=== PATIENT | female | born 1970 | race Caucasian/White ===

== ENCOUNTER 2016-04-26 08:52 | Observation (INO) | payer BC, OTHER ==
[2016-04-08 09:28] VITALS: BMI 24.0
--- NOTE | 2016-04-09 13:28 | PAT Medication Instructions ---
Service Date Apr 09, 2016. Current Home Medication List Albuterol Hfa (Ventolin Hfa), 2-4 PUFFS INH Q6H PRN for Shortness of Breath Control Pills ( Control Pills), 1 TAB PO DAILY Fexofenadine Hcl (Jane Allergy), 1 TAB PO QAM Fluticasone Propionate (Nasal) (Flonase Allergy Relief), 1 SPRAY NA DAILY Medication Instructions For Your Scheduled Surgery - Check with surgeon for instructions: Control Pills ( Control Pills), 1 TAB PO DAILY Excedrin Migraine - Hold the following medications the morning of surgery: Fexofenadine Hcl (Jane Allergy), 1 TAB PO QAM - Take the following medications the morning of surgery with a sip of water: Fluticasone Propionate (Nasal) (Flonase Allergy Relief), 1 SPRAY NA DAILY Albuterol Hfa (Ventolin Hfa), 2-4 PUFFS INH Q6H PRN for Shortness of Breath - Take the following medications as scheduled the night before surgery: Albuterol Hfa (Ventolin Hfa), 2-4 PUFFS INH Q6H PRN for Shortness of Breath If you have any questions please call us at [phone] (Jessica Worley PA-C ) or [phone] or [phone]
[2016-04-09 16:04] LABS: BUN/CREATININE RATIO 15.1 (10-20); CALCIUM 8.8 mg/dl (8.5-10.1); CREATININE 0.95 mg/dl (0.60-1.20); POTASSIUM 3.9 mmol/L (3.5-5.1)
[2016-04-09 17:43] LABS: HEMATOCRIT 39.2 % (37-47); MEAN CELL VOLUME 93.6 fL (80-100); MEAN CORPUSCULAR HEMOGLOBIN 32.2 pg (25-34); MEAN CORPUSCULAR HGB CONC 34.4 g/dl (32-36); MEAN PLATELET VOLUME 11.1 fL (7.4-10.4); PLATELET COUNT 230 K/uL (130-400); RED BLOOD COUNT 4.19 M/uL (4.2-5.4); WHITE BLOOD COUNT 7.53 K/uL (4.8-10.8)
[2016-04-09 17:44] LABS: BASO % 0.4 %; BASO ABS # 0.03 K/uL (0-0.2); COMPLETE YES; EOS % 1.2 %; LYMPH % 25.6 %; LYMPH ABS # 1.93 K/uL (1.2-3.4); MONO % 6.1 %; NEUT % 66.7 %
[2016-04-26] VITALS (8 sets, daily range): BP systolic 119–155; BP diastolic 79–102; PULSE 74–86; TEMP 36.3–37.2; O2SAT 96–100; Ht 175.3 cm; Wt 75.0 kg
[~2016-04-26] VITALS: Ht 175.3 cm; Wt 75.0 kg
[~2016-04-26 08:52] MED LIST: BCPILLS PO; CEFAZOLIN 2000 MG/60 ML D5W IV SCH; CEFAZOLIN IV SCH; DEXTROSE 5% IV SCH; FEXO1TAB49 PO; FLUT0.15; LACTATED RINGER'S 1000ML 1,000 ML IV SCH; VNTHFA/IN INH
[2016-04-26] MEDS ORDERED: FENTANYL CITRATE INJ 50 MCG/1 ML 2 ML VIAL ONE ×3 (09:26→14:57)
[2016-04-26] MEDS ORDERED: MIDAZOLAM HCL 1 MG/ML 2ML VIAL ONE (09:26)
[2016-04-26] MEDS ORDERED: ONDANSETRON INJ 2 MG/ML 2 ML VIAL IV PRN ×2 (09:45→15:30)
[2016-04-26] MEDS ORDERED: ATROPINE SULFATE 0.1 MG/ML 5ML SYR IV PRN (09:45)
[2016-04-26] MEDS ORDERED: EpHEDrine SULFATE INJ 50 MG/ML AMP IV PRN (09:45)
[2016-04-26] MEDS ORDERED: MoRPHine SULFATE 10 MG/ML CARP/VIAL IV PRN (09:45)
--- NOTE | 2016-04-26 09:52 | History & Physical Bridge Note ---
H&P Re-Evaluation Bridge Note: I have examined the patient, reviewed the History & Physical and in the interval since the performance of the History & Physical I have noted the following changes of clinical significance: No changes noted
[2016-04-26] MEDS ORDERED: ALBUTEROL HFA INHALER 18 GM INH SCH (10:00)
[2016-04-26] MEDS ORDERED: ALBUTEROL HFA 8 GM INHALER INH SCH (10:00)
[2016-04-26] MEDS ORDERED: MINERAL OIL LIGHT 10 ML BTL ONE (10:23)
[2016-04-26] MEDS ORDERED: ISOSULFAN BLUE 10 MG/ML VIAL 5 ML ONE (10:23)
[2016-04-26] MEDS ORDERED: LIDOCAINE HCL 1% 20 ML VIAL ONE (10:24)
[2016-04-26] MEDS ORDERED: GLYCOPYRROLATE INJ 0.2 MG/ML VIAL ONE ×2 (11:40→12:37)
[2016-04-26] MEDS ORDERED: PROPOFOL IV EMULSION 10 MG/ML 20 ML VIAL IV ONE (11:54)
[2016-04-26] MEDS ORDERED: DEXAMETHASONE SOD INJ 4 MG/ML VIAL ONE (11:54)
[2016-04-26] MEDS ORDERED: ONDANSETRON INJ 2 MG/ML 2 ML VIAL ONE (11:54)
[2016-04-26] MEDS ORDERED: LIDOCAINE HCL 2% 2 ML VIAL (20MG/ML) ONE (11:55)
[2016-04-26] MEDS ORDERED: ROCURONIUM BROMIDE 10 MG/ML 5 ML VIAL ONE (11:55)
[2016-04-26] MEDS ORDERED: NEOSTIGMINE METHYLSULFATE 5 MG/5 ML SYR ONE (12:38)
[2016-04-26] MEDS ORDERED: MoRPHine SULFATE 2 MG/ML CARP ONE (13:42)
[2016-04-26] MEDS: FENTANYL CITRATE INJ 50 MCG/1 ML 2 ML VIAL IV PRN ×2 (15:02→15:12)
[2016-04-26] MEDS ORDERED: PROMETHAZINE HCL INJ 12.5 MG in SODIUM CHLORIDE 0.9% 50ML 50 ML IV PRN (15:30)
[2016-04-26] MEDS ORDERED: IBUPROFEN 600 MG TAB PO PRN (15:30)
[2016-04-26] MEDS ORDERED: OXYCODONE/ACETAMINOPHEN 5-325 TAB PO PRN ×2 (15:30)
[2016-04-26] MEDS ORDERED: ACETAMINOPHEN 325 MG TAB PO PRN (15:30)
[2016-04-26] MEDS ORDERED: ZOLPIDEM TARTRATE 5 MG TAB PO PRN (15:30)
[2016-04-26] MEDS ORDERED: MAGNESIUM HYDROXIDE SUSP 30 ML UDC PO PRN (15:30)
[2016-04-26] MEDS ORDERED: MEPERIDINE HCL 50 MG/ML CARP IV PRN (15:30)
[2016-04-26] MEDS ORDERED: BISACODYL 10 MG SUPP PR PRN (15:30)
[2016-04-26] MEDS ORDERED: PROMETHAZINE HCL INJ 25 MG in SODIUM CHLORIDE 0.9% 50ML 50 ML IV PRN (15:30)
[2016-04-26] MEDS ORDERED: MEPERIDINE HCL 75 MG/ML CARP IV PRN (15:30)
--- NOTE | 2016-04-26 15:38 | [facility] Operative Report ---
Operative Report Operative Date Apr 26, 2016. Pre-Operative Diagnosis menorrhagia and fibroid uterus Post-Operative Diagnosis same Procedure(s) Performed total laparoscopic hysterectomy cystoscopy Surgeon Dr. Ronal Morrison Chief Radiation Therapist Surgeon(s) Dr. Wm Salguero Estimated Blood Loss 125ML Findings dictated Specimens A. uterus, cervix, fibroid Drains de Anesthesia genral Complication(s) None Disposition Recovery Room / PACU Indications fibroid uterus and menorrhagia I attest to the content of the Intraoperative Record and any orders documented therein. Any exceptions are noted below.
--- NOTE | 2016-04-26 15:53 | Anesthesiology Progress Note ---
Anesthesia Post Op Note Date & Time Apr 26, 2016 at 15:49 Vital Signs Pain Intensity: 2 Vital Signs Past 12 Hours Date Time Temp Pulse Resp B/P Pulse Ox O2 Delivery O2 Flow Rate FiO2 04/26/16 15:40 36.4 73 13 133/77 100 Nasal Cannula 2 04/26/16 15:30 74 14 137/81 100 Nasal Cannula 2 04/26/16 15:20 76 21 132/85 99 Nasal Cannula 2 04/26/16 15:10 70 13 117/78 100 Nasal Cannula 2 04/26/16 15:00 72 17 123/81 100 Mask 10 04/26/16 14:53 36.3 72 11 124/80 100 Mask 10 04/26/16 09:15 37.2 74 18 155/102 99 Room Air Notes Mental Status: alert / awake / arousable, participated in evaluation Pt Amnestic to Procedure: Yes Nausea / Vomiting: adequately controlled Pain: adequately controlled Airway Patency, RR, SpO2: stable & adequate BP & HR: stable & adequate Hydration State: stable & adequate Anesthetic Complications: no major complications apparent Pt was noted to have L eye discomfort on admission to PACU. I examined the pt. There was no noteable erythema in her left eye. She has no change in vision. I spoke to the pt about her having a possible corneal abrasion. I ordered erythromycin ointment for the pt. The pt was otherwise stable for discharge.
--- NOTE | 2016-04-26 16:20 | OPERATIVE REPORT ---
DATE OF OPERATION: 04/26/2016 INDICATION FOR PROCEDURE: This is a 45-year-old with a fibroid uterus and menorrhagia. An attempted endometrial ablation was unsuccessful. The patient therefore decided to undergo hysterectomy. PREOPERATIVE DIAGNOSES: 1. Menorrhagia. 2. Fibroid uterus. 3. Failed attempt at endometrial ablation. POSTOPERATIVE DIAGNOSES: Same. PROCEDURES: 1. Examination under anesthesia. 2. Total laparoscopic hysterectomy. 3. Cystoscopy. SURGEON: Ronal Morrison MD [employer] COUNCIL DIRECTOR: Dr. Salguero. ESTIMATED BLOOD LOSS: 125 mL. FINDINGS: The patient had about 8-9 weeks' size uterus. She, however, had a rather large fibroid. Fibroid was about 15-16 weeks' size. Fibroid was located in the posterior cervix region. DRAINS: Baez. EBL; 125 IVF ; 2200 Urine output 600 ANESTHESIA: General. COMPLICATIONS: None. DISPOSITION: Stable to recovery room. PATHOLOGY: Uterus with cervix and fibroids. DESCRIPTION OF PROCEDURE: The patient was taken to the operating room, where she was prepped and draped in normal sterile fashion in dorsal lithotomy position. The bladder was catheterized and a weighted speculum placed in the vagina. A Morgan retractor was used to retract the anterior part of the vagina. Single tooth tenaculum was used to grab the cervix. A VCare retractor was placed in the uterus after the uterus was sounded and dilated. Sutures were used to stabilize the VCare in order to help manipulate the uterus during laparoscopy. Attention was paid to the abdominal part of the procedure, where an infraumbilical incision was made with a scalpel and carried down to the fascia. A Veress needle was introduced into the abdomen at a 45-degree angle while tenting up the abdomen. Once inside the abdomen, placement was confirmed with a water filled syringe. The abdomen was insufflated with CO2 to about 3 liters. The Veress needle was removed and a laparoscope with a trocar introduced into the abdomen under direct visualization. Once inside the abdomen, the laparoscope was repositioned. The findings in the abdomen were as dictated above. The patient had a uterus with a rather large posterior fibroid in the cervical region. Two accessory ports were placed in the lower pelvis. These were done under direct visualizations. The round ligament on both sides were identified, grabbed with the LigaSure and fulgurated. Infundibular pelvis on both sides were also fulgurated and cut. The anterior bladder flap was dissected using traction and countertraction. The vesicouterine peritoneum was dissected off the lower segment of the uterus. The serosa surrounding the fibroid posteriorly was also dissected posteriorly. The round ligament on both sides were identified and fulgurated. The dissection was continued superiorly to inferiorly down to the pelvis towards the direction of the cervix. Round ligaments on both sides were identified and fulgurated. The VCare could now be palpated. Using the VCare, transection of the cervix from the vaginal wall was performed circumferentially along the edges of the VCare. Attention was then paid back to the vaginal part of the surgery, where an attempt was made to remove the uterus and the fibroid. Because of the size of the fibroid, the uterus could not be removed intact. The fibroid was therefore transected into smaller pieces in order to be able to remove the uterus out through the vaginal canal. This was eventually successful. The uterus and fibroid as well as the small pieces all were sent to pathology for pathological analysis. A glove with sponge was placed in the vagina to help maintain pneumoperitoneum. Copious amount of irrigation was used to irrigate the abdomen. The pedicles from the hysterectomy appeared to be stable and have good hemostasis. The vaginal cuff was closed using EndoStitch in a locking fashion. More irrigation was used to irrigate the abdomen and there was good hemostasis. Attention was paid back to the vaginal part of the operation, where a cystoscopy was performed. Dye was seen jetting from both urethral orifices. The bladder appeared to have no trauma. There were no sutures seen in the bladder cavity. The laparoscope was removed from the bladder and attention was paid back to the abdominal part of the surgery, where the fascia in all 3 trocar sites were closed with Vicryl stitch and skin was closed with 4-0 Monocryl. All instruments removed from the vagina and the abdomen and accounted for x2. The patient is doing well and sent to recovery in stable condition. I attest to the content of the Intraoperative Record and any orders documented therein. Any exceptions are noted below. JASON
[2016-04-26] MEDS ORDERED: IV FLUIDS COMPLETED PRN (16:45)
[2016-04-26] MEDS: LACTATED RINGER'S 1000ML 1,000 ML IV SCH (17:29)
[2016-04-26] MEDS: ERYTHROMYCIN OP OINT 5 MG/GM 3.5 GM TUBE OP SCH ×2 (17:30→20:42)
[2016-04-26] MEDS: KETOROLAC TROMETHAMINE 30 MG/ML VIAL IV. PRN (17:44)
[2016-04-26 20:13] LABS: HEMATOCRIT 35.3 % (37-47)
[2016-04-26] MEDS: DOCUSATE SODIUM 100 MG CAP PO SCH (20:42)
[2016-04-27] MEDS: KETOROLAC TROMETHAMINE 30 MG/ML VIAL IV. PRN (01:26)
[2016-04-27] MEDS: LACTATED RINGER'S 1000ML 1,000 ML IV SCH (01:28)
[2016-04-27 04:12] VITALS: BP 115/76; PULSE 90; TEMP 36.6; O2SAT 97
[2016-04-27] MEDS: DOCUSATE SODIUM 100 MG CAP PO SCH (07:45)
[2016-04-27 07:50] VITALS: BP 122/81; PULSE 89; TEMP 36.7; O2SAT 97
--- NOTE | 2016-04-27 08:08 | Surgery Progress Note ---
Surgery Progress Note Date of Service Apr 27, 2016. Subjective Post OP Day: 1 + ambulating, + feeling well, + pain controlled, No SOB, No bowel movement, No chest pain, No complaints, No diet, No flatus, No nausea, No vomiting Objective Vital Signs: Date Time Temp Pulse Resp B/P Pulse Ox O2 Delivery O2 Flow Rate FiO2 04/27/16 07:50 36.7 89 20 122/81 97 Room Air 04/27/16 04:12 36.6 90 18 115/76 97 Room Air 04/26/16 23:27 36.7 84 18 119/79 99 Room Air 04/26/16 23:27 99 Room Air 04/26/16 19:50 36.7 85 20 138/90 97 Room Air 04/26/16 18:55 36.3 86 18 130/84 96 Room Air 04/26/16 17:55 36.3 80 18 137/86 98 Room Air 04/26/16 16:55 36.4 82 18 129/83 100 Nasal Cannula 2.0 04/26/16 16:25 36.5 78 18 125/81 99 Nasal Cannula 2.0 04/26/16 15:55 99 Nasal Cannula 2.0 04/26/16 15:55 36.9 75 18 138/86 98 Nasal Cannula 2.0 04/26/16 15:55 99 Nasal Cannula 2.0 04/26/16 15:40 36.4 73 13 133/77 100 Nasal Cannula 2 04/26/16 15:30 74 14 137/81 100 Nasal Cannula 2 04/26/16 15:20 76 21 132/85 99 Nasal Cannula 2 04/26/16 15:10 70 13 117/78 100 Nasal Cannula 2 04/26/16 15:00 72 17 123/81 100 Mask 10 04/26/16 14:53 36.3 72 11 124/80 100 Mask 10 04/26/16 09:15 37.2 74 18 155/102 99 Room Air Laboratory Results: Results Past 24 Hours Test 04/26/16 09:25 04/26/16 20:06 04/27/16 06:00 Range/Units Hemoglobin 12.0 12.0-16.0 g/dL Hematocrit 35.3 37-47 % Assessment & Plan Total Laparoscopic hysterectomy with cystoscopy Day #1 pt doing well d/c home with instructions later after ambulation and tolerating PO food and meds
[2016-04-27] MEDS: ERYTHROMYCIN OP OINT 5 MG/GM 3.5 GM TUBE OP SCH (08:19)
[2016-04-27] MEDS ORDERED: OXYC-57 PO (08:53)
[2016-04-27] MEDS ORDERED: MTR600X PO (08:53)
--- NOTE | 2016-04-27 08:55 | Discharge Instructions ---
Discharge Instructions Admission Reason for Admission: Fibroid Uterus, Menorrhagia Discharge Discharge Diagnosis / Problem: s/p laparoscopic hysterectomy Discharge Goals Goal(s): Routine recovery after surgery Activity Recommendations Activity Limitations: per Instructions/Follow-up section . Instructions / Follow-Up Instructions / Follow-Up POST OPERATIVE: BOWEL FUNCTION/MEDICATIONS: 1. Constipation pain and discomfort are the most common complaints 5-7 days after surgery. Points 2-6 address the things that can help. 2. Chewing gum can help stimulate the gut and help improve digestion and motility. 3. Milk of Magnesia 1-2 times per day until return of bowel function. 4. Colace is a stool softener that helps. Taking this 2-3 times per day until bowel function returns to normal is highly recommended. 5. Dulcolax is a laxative that may be used if several days have passed without a bowel movement. Alternatively Miralax may be used daily instead. 6. Drink plenty of fluids as this will also reduce constipation. 7. Narcotic pain medications will be prescribed by your physician. They are safe to use and we encourage you to use them. If you are not allergic, ibuprofen will also be prescribed. Many patients will be able to transition off of the narcotic medications to ibuprofen by postoperative day 3. ACTIVITY RECOMMENDATIONS: 1. Get plenty of rest and listen to your body. If you are tired, take a nap. 2. You may shower, but do not take a tub bath until you see your doctor at the 2 week post operative visit. 3. Absolutely NO intercourse and nothing in the vagina until you are examined by your doctor at the 6 week visit. At that visit it will be determined when such activities can be resumed. This can range from 6-12 weeks after your surgery depending on healing time. 4. The main physical activity in the first week should be walking. By the second week you can slowly increase activity. There are no limits on walking up and down stairs. 5. Do not lift more than 5-10 lbs for 4 weeks. Remember the "one-handed rule", i.e. if you can lift something with only one hand it's likely okay. 6. Minimize tennis player like vacuuming and exercising for 4 weeks. "Overdoing it" can lead to incisions not healing, pain and vaginal bleeding , so again, listen to your body. 7. Driving can be resumed when you feel able. Do not drive within 24 hours of taking a narcotic medication. EXPECTATIONS: 1. Vaginal spotting, bleeding and discharge are common after surgery. There may even be an odor to the discharge which is often related to sutures used in the vagina. If you experience heavy vaginal bleeding, call the office number day or night [phone]. 2. Bladder discomfort is common after surgery from the catheter. This usually resolves in 1-2 weeks. 3. By the end of the 3rd or 4th week you should be feeling much better. It may take up to 6 weeks for your energy levels to return to normal. 4. Narcotic medications have side effects such as: dizziness, headache, nausea and/or vomiting. If you suspect your pain medication is causing problems, call our office and we may be able to prescribe an alternate medication. 5. The skin incisions are often covered with a liquid bandage. This will gradually peel off over time. CALL THE OFFICE IF YOU HAVE ANY OF THE FOLLOWIN. Temperature of 101 degrees or higher. 2. Severe abdominal or pelvic pain not relieved by pain medication. 3. Persistent nausea or vomiting. 4. Increased pain with urination or difficulty urinating. 5. Bright red bleeding that soaks more than 1 pad per hour. CONTACT PHONE NUMBERS: Main Office: [phone] FOLLOW-UP: Post-Operative Appointments: * Individual instructions will have been given about the timing of your first examination, but this is usually at the end of the second week home. * You will need to call the office at [phone] soon after discharge to make the appointment for your post-op check-up if it has not already been scheduled. * Additional information regarding activity, sexual intercourse and when to return to work will be given at this appointment. WE WISH YOU A SPEEDY RECOVERY! Current Hospital Diet Patient's current hospital diet: Regular Diet Discharge Diet Recommended Diet: Regular Diet Procedures Procedures Performed: Total Laparoscopic Hysterectomy; Cystoscopy Pending Studies Studies pending at discharge: no Medical Emergencies . Who to Call and When: Medical Emergencies: If at any time you feel your situation is an emergency, please call 911 immediately. . Non-Emergent Contact Non-Emergency issues call your: [employer] . . "Provider Documentation" section prepared by mW Salguero. VTE Core Measure Inpt VTE Proph given/why not?: Treatment not indicated
[2016-04-27 09:20] LABS: BASO % 0.1 %; BASO ABS # 0.01 K/uL (0-0.2); COMPLETE YES; EOS % 0.1 %; HEMATOCRIT 32.7 % (37-47); IG% 0.1 %; LYMPH % 14.7 %; LYMPH ABS # 1.36 K/uL (1.2-3.4); MEAN CELL VOLUME 95.6 fL (80-100); MEAN CORPUSCULAR HEMOGLOBIN 31.9 pg (25-34); MEAN CORPUSCULAR HGB CONC 33.3 g/dl (32-36); MEAN PLATELET VOLUME 10.5 fL (7.4-10.4); MONO % 4.4 %; NEUT % 80.6 %; PLATELET COUNT 187 K/uL (130-400); RED BLOOD COUNT 3.42 M/uL (4.2-5.4); WHITE BLOOD COUNT 9.23 K/uL (4.8-10.8)
[2016-04-27 09:45] LABS: BUN/CREATININE RATIO 11.2 (10-20); CALCIUM 7.7 mg/dl (8.5-10.1); CREATININE 0.86 mg/dl (0.60-1.20); POTASSIUM 3.6 mmol/L (3.5-5.1)
[2016-04-27 10:00] VITALS: BP 122/81; PULSE 89; TEMP 36.7; O2SAT 97
--- NOTE | 2016-05-01 03:57 | DISCHARGE SUMMARY ---
CHIEF COMPLAINT: 1. Menorrhagia. 2. Failed endometrial ablation. HISTORY OF PRESENT ILLNESS: This is a 45-year-old G0, P0, with fibroid uterus and menorrhagia, and attempted endometrial ablation was unsuccessful because of the obstruction of the fibroid at the cervical opening. The patient, therefore, agreed to undergo hysterectomy. The patient was admitted on 04/26/2016 and underwent total laparoscopic hysterectomy with cystoscopy. Details of the surgery are in the surgical note. The patient did well and was discharged home on 04/27/2016 in stable condition. PAST MEDICAL HISTORY: The patient has a history of: 1. Allergic rhinitis. 2. Asthma. 3. Irritable bowel. 4. Migraines. PAST SURGICAL HISTORY: The patient has a history of: 1. Wrist surgery. 2. Breast augmentation. SOCIAL HISTORY: The patient denies tobacco, drug or alcohol use. FAMILY HISTORY: Noncontributory. ALLERGIES: The patient has no known drug allergies. REVIEW OF SYSTEMS: Negative except as dictated under HPI. PHYSICAL EXAMINATION: GENERAL: Well-developed, well-nourished white female in no acute distress. VITAL SIGNS: On 04/27/2016, temperature 36.7, pulse 89, respirations 20, blood pressure 115/76. HEART: S1, S2, regular rhythm and rate. LUNGS: Clear to auscultation bilaterally. ABDOMEN: Nontender, nondistended, positive bowel sounds. EXTREMITIES: No cyanosis, clubbing or edema. CONDITION ON DISCHARGE: Stable. OPERATIONS: 1. Total laparoscopic hysterectomy. 2. Cystoscopy. DISCHARGE DIAGNOSES: Postop total laparoscopic hysterectomy and cystoscopy. PLAN ON DISCHARGE: The patient is discharged home in stable condition with instructions regarding activity, diet, followup appointment, and medication.
== END 2016-04-27 10:00 | disposition home or self-care (01) ==
LOC: ENRESERVDT → ENRESERVTM → C.ACU 08:52 → C.MS4N 09:30
PROVIDERS: ADMIT Obstetrics & Gynecology; ATTEND Obstetrics & Gynecology
DX: D25.9 Leiomyoma of uterus, unspecified (principal); N92.0 Excessive and frequent menstruation with regular cycle; J45.909 Unspecified asthma, uncomplicated